=== PATIENT | female | born 1960 | race Caucasian/White ===

== ENCOUNTER 2016-11-16 07:19 | Emergency (ER) | payer OTHER ==
[2016-11-16 07:29] VITALS: BP 137/86; PULSE 89; TEMP 98; BMI 28.3
[2016-11-16] MEDS ORDERED: TOBRAMYCIN 0.3% OPHTH SOLN 5 ML BOTTLE OS ONE (07:46)
--- NOTE | 2016-11-16 07:50 | PDOC ---
History of Present Illness - General Chief Complaint: Eye Problem Stated Complaint: PICK EYE Time Seen by Provider: 11/16/16 07:43 History Source: Patient Exam Limitations: No Limitations - History of Present Illness Initial Comments: 11/16/16 07:48 CHIEF COMPLAINT: Eye pain HISTORY OF PRESENT ILLNESS: This is a 56-year-old female with a history of CAD/ MD s/p stent who presents complaining of 2 days of left eye redness, swelling, pain, and crusting discharge. She denies any visual changes, fevers/chills, or any other symptoms. REVIEW OF SYSTEMS: GENERAL/CONSTITUTIONAL: No fever or chills. No weakness. No weight change. HEAD, EYES, EARS, NOSE AND THROAT: See HPI. CARDIOVASCULAR: No chest pain or palpitations. RESPIRATORY: No cough, wheezing, or shortness of breath NEUROLOGIC: No headache, vertigo, loss of consciousness, or loss of sensation. ALLERGIC/IMMUNOLOGIC: No hives or skin allergy. No latex allergy. PHYSICAL EXAM: GENERAL: The patient is awake, alert, and fully oriented, in no acute distress. ENT: Left conjunctiva injected, sclera red, discharge present. EOMI. PERRL. No periorbital redness. NEUROLOGICAL: Normal speech, normal gait. CN II-XII grossly intact. PSYCH: Normal mood, normal affect. SKIN: Warm, dry, normal turgor, no rashes or lesions noted. Past History - Past Medical History Allergies/Adverse Reactions: Allergies Allergy/AdvReac Type Severity Reaction Status Date / Time codeine Allergy Verified 11/16/16 07:29 Home Medications: Ambulatory Orders Aspirin [Maki Chewable] 81 mg PO DAILY 11/16/16 Atorvastatin Ca [Lipitor] 0 mg PO HS 11/16/16 Lisinopril [Prinivil] 10 mg PO DAILY 11/16/16 Metoprolol Succinate [Toprol Xl -] 0 mg PO DAILY 11/16/16 HTN: Yes Hypercholesterolemia: Yes - Psycho/Social/Smoking Cessation Hx Suicidal Ideation: No Smoking History: Never smoked Number of Cigarettes Smoked Daily: 1 Information on smoking cessation initiated: No *Physical Exam - Vital Signs Last Vital Signs Temp Pulse Resp BP Pulse Ox 98 F 89 18 137/86 99 11/16/16 07:24 11/16/16 07:24 11/16/16 07:24 11/16/16 07:24 11/16/16 07:24 Medical Decision Making - Medical Decision Making 11/16/16 08:20 A/P: 56 year old female with conjunctivitis. -Tobramycin gtt -Warm compresses -Followup instructions and return precautions reviewed *DC/Admit/Observation/Transfer Diagnosis at time of Disposition: Conjunctivitis Qualifiers: Conjunctivitis type: acute Acute conjunctivitis type: bacterial Laterality: left Qualified Code(s): H10.32 - Unspecified acute conjunctivitis, left eye - Discharge Dispostion Disposition: HOME Admit: No - Referrals Referrals: Mone English MD [Staff Physician] - (Primary Care) - Patient Instructions Printed Discharge Instructions: DI for Conjunctivitis Additional Instructions: -Use Tobramycin 1 drop in the left eye every 4 hours for one week -Use warm compresses at least 5 times per day -Wash sheets and pillowcases in hot water -Return for changes in vision or any other concerning symptoms - Post Discharge Activity Work/School Note: Back to Work
[2016-11-16] MEDS ORDERED: TOBRAMYCIN 0.3% OPHTH SOLN 5 ML BOTTLE ONE (07:55)
== END 2016-11-16 08:24 | disposition home or self-care (01) ==
LOC: JER 07:19
DX: H10.32 Unspecified acute conjunctivitis, left eye (principal); I25.2 Old myocardial infarction; I25.10 Atherosclerotic heart disease of native coronary artery without angina pectoris; I10 Essential (primary) hypertension; Z95.5 Presence of coronary angioplasty implant and graft
CPT/HCPCS: 99281-25

== ENCOUNTER 2021-01-15 15:00 | Observation (INO) | payer OTHER ==
[2021-01-15 15:18] VITALS: TEMP 98; BMI 26.4
[2021-01-15 18:16] LABS: BASO % 0.3 % (0-2.0); HEMATOCRIT 25.2 % (32.4-45.2); HEMOGLOBIN 8.8 GM/dL (10.7-15.3); LYMPH % 5.4 % (8-40); MCH 30.3 pg (25.7-33.7); MCHC 34.8 g/dl (32.0-36.0); MEAN PLT VOLUME 7.1 fl (7.5-11.1); MONO % 9.1 % (3.8-10.2); NEUT % 85.2 % (42.8-82.8); PLATELET COUNT 371 10^3/uL (134-434); RDW 15.8 % (11.6-15.6); WHITE BLOOD COUNT 7.8 K/mm3 (4.0-10.0)
[2021-01-15 18:30] LABS: CALCIUM 9.1 mg/dL (8.5-10.1)
[2021-01-15 18:31] LABS: ALBUMIN 2.6 g/dl (3.4-5.0); BLOOD UREA NITROGEN 26.8 mg/dL (7-18)
[2021-01-15 18:34] LABS: CREATININE 1.7 mg/dL (0.55-1.3)
[2021-01-15 18:35] LABS: BILIRUBIN,TOTAL 0.3 mg/dL (0.2-1); TOT PROT 7.1 g/dl (6.4-8.2)
[2021-01-15] MEDS ORDERED: ATORVASTATIN CA 80 MG TABLET (FP) ONE (21:56)
[2021-01-15] MEDS ORDERED: APIXABAN 2.5 MG TABLET ONE (21:56)
[2021-01-15] MEDS ORDERED: APIXABAN 5 MG TABLET PO SCH (22:00)
[2021-01-15] MEDS ORDERED: ATORVASTATIN CA 80 MG TABLET (FP) PO SCH (22:00)
[2021-01-15] MEDS: APIXABAN 2.5 MG TABLET PO SCH (23:15)
[2021-01-15 23:45] LABS: EPI CELLS 21 /uL (0-25.1); HYALINE CASTS 2 /uL (0-3.1); PH,URINE 6.5 (5.0-8.0); URINE APPEARANCE CLEAR; URINE BACTERIA 53 /uL (0-1359); URINE BILIRUBIN NEGATIVE (NEGATIVE); URINE COLOR YELLOW; URINE GLUCOSE (UA) NEGATIVE (NEGATIVE); URINE KETONE NEGATIVE (NEGATIVE); URINE LEUK ESTERASE 2+ (NEGATIVE); URINE NITRITE NEGATIVE (NEGATIVE); URINE PROTEIN 2+ (NEGATIVE); URINE RBC 35 /uL (0-23.9); URINE UROBILINOGEN 0.2 mg/dL (0.2-1.0); URINE WBC 437 /uL (0-25.8)
[2021-01-16] MEDS ORDERED: CEFTRIAXONE 1 GM in DEXTROSE 5%-WATER - 50 ML IVPB SCH (01:15)
[2021-01-16] MEDS ORDERED: CEFTRIAXONE 1 GM/50 ML BAG ONE ×2 (02:11→02:29)
[2021-01-16] MEDS ORDERED: MELATONIN 5 MG TABLETS PO ONE (03:32)
[2021-01-16 06:49] LABS: HEMATOCRIT 24.5 % (32.4-45.2); HEMOGLOBIN 8.5 GM/dL (10.7-15.3); MCH 30.2 pg (25.7-33.7); MCHC 34.8 g/dl (32.0-36.0); MEAN PLT VOLUME 7.3 fl (7.5-11.1); PLATELET COUNT 369 10^3/uL (134-434); RBC 2.82 M/mm3 (3.60-5.2); RDW 15.3 % (11.6-15.6); WHITE BLOOD COUNT 4.9 K/mm3 (4.0-10.0)
[2021-01-16] MEDS ORDERED: HYDROCHLOROTHIAZIDE 12.5 MG CAPSULE (FP) PO SCH ×2 (07:00→10:00)
[2021-01-16 07:05] LABS: ALBUMIN 2.6 g/dl (3.4-5.0); CALCIUM 8.7 mg/dL (8.5-10.1)
[2021-01-16 07:06] LABS: BLOOD UREA NITROGEN 24.2 mg/dL (7-18); MAGNESIUM 1.3 mg/dL (1.8-2.4)
[2021-01-16 07:09] LABS: CREATININE 1.8 mg/dL (0.55-1.3); PHOSPHOROUS 4.7 mg/dL (2.5-4.9)
[2021-01-16 07:10] LABS: BILIRUBIN,TOTAL 0.4 mg/dL (0.2-1); TOT PROT 6.7 g/dl (6.4-8.2)
[2021-01-16] MEDS ORDERED: MAGNESIUM SULF 50% (8.12 MEQ/2 ML-1 GM VIAL) IVPB ONE (07:45)
[2021-01-16] MEDS ORDERED: MAGNESIUM 2GM/50ML STERILE WATER IVPB IVPB ONE (08:00)
[2021-01-16] MEDS ORDERED: MAGNESIUM SULFATE IN WATER 2 GM/50 ML IVPB IVPB ONE (09:19)
[2021-01-16] MEDS ORDERED: ASPIRIN 81 MG CHEWABLE TABLETS PO SCH (10:00)
[2021-01-16] MEDS ORDERED: LISINOPRIL 5 MG TABLET PO SCH ×2 (10:00→22:00)
[2021-01-16] MEDS ORDERED: APIXABAN 5 MG TABLET PO SCH (10:20)
[2021-01-16 11:33] VITALS: BP 125/65; PULSE 75
[2021-01-16] MEDS: APIXABAN 2.5 MG TABLET PO SCH (13:20)
[2021-01-16] MEDS ORDERED: ATORVASTATIN CA 80 MG TABLET (FP) PO SCH (22:00)
== END 2021-01-16 17:13 | disposition home or self-care (01) ==
LOC: JER 15:00 → UNDOADMOB 18:49 → JERBED 18:49 → OBSVTOIN 20:31 → INTOOBSV 20:31 → JERBED 01-16 16:15
PROVIDERS: ADMIT Internal Medicine; ATTEND Internal Medicine
PROC: 3E03329 Introduction of Other Anti-infective into Peripheral Vein, Percutaneous Approach (ICD-10-PCS; principal; 2021-01-16)
PROC: 3E033GC Introduction of Other Therapeutic Substance into Peripheral Vein, Percutaneous Approach (ICD-10-PCS; 2021-01-16)
DX: I13.10 Hypertensive heart and chronic kidney disease without heart failure, with stage 1 through stage 4 chronic kidney disease, or unspecified chronic kidney disease (principal); I25.10 Atherosclerotic heart disease of native coronary artery without angina pectoris; D64.9 Anemia, unspecified; I10 Essential (primary) hypertension; E78.5 Hyperlipidemia, unspecified; I11.9 Hypertensive heart disease without heart failure; Z85.41 Personal history of malignant neoplasm of cervix uteri; N28.9 Disorder of kidney and ureter, unspecified; Z88.6 Allergy status to analgesic agent; Z29.9 Encounter for prophylactic measures, unspecified; I48.91 Unspecified atrial fibrillation
CPT/HCPCS: 36415; 76775-TC; 80053; 81003; 82550; 82728; 83036; 83540; 83550; 83735; 84100; 84443; 84484; 85025; 85027; 85045; 87086; 87186; 93005; 93010; 99285-25; C9803; G0378; U0003; U0005